=== PATIENT | male | born 1955 | race Caucasian/White ===

== ENCOUNTER 2024-09-13 06:15 | Day surgery (SDC) | payer MEDICARE, OTHER, SELFPAY ==
[2024-09-13 07:21] LABS: Glucose - Point of Care 136 mg/dl (70-99)
== END 2024-09-13 08:32 | disposition home or self-care (01) ==
LOC: GI 06:15
PROVIDERS: ATTENDING PHYSICIAN Specialist
DX: Z12.11 Encounter for screening for malignant neoplasm of colon (principal); D12.2 Benign neoplasm of ascending colon; D12.3 Benign neoplasm of transverse colon; D12.4 Benign neoplasm of descending colon; D12.5 Benign neoplasm of sigmoid colon; Z86.0101 Personal history of adenomatous and serrated colon polyps
CPT/HCPCS: 45385; 45380; 82962; 88305

== ENCOUNTER → 2024-10-07 12:12 | Outpatient (REF) | payer MEDICARE, OTHER, SELFPAY | LOC: HWRAD 12:12 | PROVIDERS: ATTENDING PHYSICIAN Family Medicine | DX: R07.81 Pleurodynia (principal) | CPT/HCPCS: 71101 ==

== ENCOUNTER 2024-12-10 12:01 | Emergency (ER) | payer MEDICARE, OTHER, SELFPAY ==
[2024-12-10 12:02] VITALS: BP 148/80
[2024-12-10 12:19] LABS: Urine Character Clear (Clear)
[2024-12-10 12:20] LABS: Hematocrit 40.9 % (39.0-52.0); Hemoglobin 13.7 g/dL (13.0-18.0); Mean Corp Hgb Conc. 33.5 g/dL (33.0-37.0); Mean Corpuscular Volume 87.6 fL (80.0-94.0); Nucleated Red Blood Cells % 0 % (-); Platelet Count 257 10^3/uL (130-400); Red Cell Dist. Width 14.8 % (11.5-14.5)
--- NOTE | 2024-12-10 12:24 | ED.GENMED ---
History of Present Illness
General
Chief Complaint: Flank Pain
Source: patient
Exam Limitations: none
Time Seen by Provider: 12/10/24 12:15
History of Present Illness
History of Present Illness:
69 year old male presents with sudden onset of right flank pain sharp in nature with nausea and vomiting. Pain feels similar to prior kidney stone he had 30 years ago. He notes hematuria. No prior abdominal surgical history. He does have history
of lung cancer was treated with chemo surgery and radiation. He was also recently diagnosed with prostate cancer at early stages that is currently being watched. No other
Past History
Past History
ED Past Medical History: Cancer (lung (non-small cell)) and IDDM
ED Past Surgical History: Other (lung resection)
Social History
Tobacco: Non-smoker
Alcohol: None
Phy Exam
Physical Exam
Physical Exam:
General: Well-appearing male no acute respiratory
HEENT: Normal cephalic atraumatic
Heart: Regular rate and rhythm
Lungs: Clear no wheeze
Abdomen is soft but tender to the right costovertebral angle.
Extremities: No cyanosis or edema
Skin warm no rash
Course
Orders/Labs/Results
Orders:
Orders
12/10/24 12:11
Complete Blood Count/With Diff Urgent
Comprehensive Metabolic Panel Urgent
Urinalysis Reflex To Culture Urgent
Date Specimen was Collected: 12/10/24
Time Specimen was Collected: 12:09
Urine Microscopic Reflex Cult Urgent
Urine Culture Urgent
MARYCARMEN Source: U
Specimen Description:
Date Specimen was Collected: 12/10/24
Time Specimen was Collected: 12:09
12/10/24 12:20
0.9% Sodium Chloride 1000 ml [Nss] 1,000 ml IV BOLUS
Ketorolac [Toradol] 15 mg IV NOW STA
Ondansetron Injectable [Zofran] 4 mg IV NOW STA
12/10/24 12:21
CT Abd/pel Without Iv Or Oral Urgent
Comment:
Reason For Exam: right flank pain
Abnormal Lab Results
12/10/24
12:11
RBC 4.67 L 10^6/uL
(4.70-6.10)
RDW 14.8 H %
(11.5-14.5)
Absolute Neuts (auto) 7.4 H 10^3/uL
(1.4-6.5)
Lymphocytes % 19.1 L %
(20.5-51.1)
Chloride 108 H mmol/L
(98-107)
Ur Occult Blood Reflex 4+ A
(Negative)
Leukocyte Esterase Rfl 1+ A
(Negative)
Urine RBC >100 A /HPF
(0-2)
Urine Bacteria (Reflex) Moderate A
(Negative)
Urine Albumin (Reflex) 2+ A
(Neg - Trace)
12/10/24 12:11
12/10/24 12:11
Vital Signs
Initial and Last Documented VS:
Initial Vital Signs
Temp Pulse Resp BP Pulse Ox
97.5 F 72 20 148/80 97
12/10/24 12:02 12/10/24 12:02 12/10/24 12:02 12/10/24 12:02 12/10/24 12:02
Last Documented Vital Signs
Temp Pulse Resp BP Pulse Ox
97.5 F 72 20 148/80 97
12/10/24 12:02 12/10/24 12:02 12/10/24 12:02 12/10/24 12:02 12/10/24 12:28
MDM/Problems Addressed
Differential Diagnosis Includes:
Right flank pain likely renal colic from kidney stone to consider UTI versus musculoskeletal pain. No rash to suggest shingles.
Urinalysis shows hematuria. Will check labs. CT pending. Treated with Toradol Zofran and fluids
*Pulse Oximetry
SaO2: 97
Oxygen Mode of Delivery: Room air
Patient hypoxic: no
*Critical Care Note
Total Time (30-74mins, 75-104mins- exclusive of procedures): Not Applicable
Update Note
Update Note:
CT demonstrates 3 mm stone at the distal UVJ. There is hematuria in the urine but no obvious infection. Patient's pain is completely resolved after CT scan and reevaluation. He may have passed it into the bladder or as a result of the Toradol.
No indication for admission. Recommended hydration at home and continued use of ibuprofen if needed. Return precautions given. He has a urologist he can follow-up with through [facility]
ED Attending Note
-
Portions of this chart may have been created with voice recognition software.� Occasional wrong word or��sound alike� substitutions may have occurred due to the inherent limitations of voice recognition software.
Discharge Plan
Departure
Patient Disposition: Home (Routine Discharge)
Date of Disposition: 12/10/24
Time of Disposition: 15:40
Patient with high blood pressure during this ER visit?: No
Discharge Problem:
Kidney stone
Instructions: Kidney Stones (DC)
Prescriptions:
No Action
gabapentin 600 MG tablet
1,200 mg PO BID
folic acid 0.4 MG tablet
0.4 mg PO HS
insulin lispro [Humalog U-100 Insulin] 100 UNIT/ML solution
0 unit INFUSION DAILY
Patient Comments:
03/26/2019 patient uses 84 units in insulin pump daily. 1unit per hour.
escitalopram oxalate 20 MG tablet
20 mg PO HS
Insulin Pump [Patient's Own Insulin Pump:] 1 UNITS Pump.Resvr
0 ea SC ACHS
Patient Comments:
03/26/2019 patient uses 84 units daily in pump. 1 unit per hour.
acetaminophen 325 MG tablet
650 mg PO Q6HPRN PRN (Reason: mild pain/ fever>100.5F) 0RF
enoxaparin 100 MG/ML syringe
100 mg SC Q12H Qty: 1 0RF
Referrals:
Sb Mendez MD [Family Provider, [facility]]
Activity Restrictions/Additional Instructions:
Drink plenty fluids. Continue with Tylenol or ibuprofen for pain. Return here for fever increased pain vomiting or other concerning finding. Follow-up with your urologist otherwise
Interventions
Interventions:
*Risk Screen - Suicide Last Done: 12/10/24 12:02
*General Assessment Last Done: 12/10/24 12:02
*Neglect/Abuse Screening Last Done: 12/10/24 12:15
*ED- Fall Risk Assessment Last Done: 12/10/24 12:15
*ED COVID-19 Vaccine History Last Done: 12/10/24 12:15
*ED Influenza Vaccine History Last Done: 12/10/24 12:15
[id number]-[id number] Assessment Last Done: 12/10/24 12:15
ED-Male Genitourinary Assessment Last Done: 12/10/24 12:15
Discharge Date and Time
Print Language: SINHALA
[2024-12-10] MEDS: NSS 1000 IV (12:26)
[2024-12-10] MEDS: ZOFRAN 4 MG IV (12:26)
[2024-12-10] MEDS: TORADOL 15 MG IV (12:27)
[2024-12-10 12:43] LABS: Urine Red Blood Cell >100 /HPF (0-2); Urine White Cell 0-2 /HPF (0-5)
[2024-12-10 12:51] LABS: ALT (SGPT) 17 U/L (0-50); AST (SGOT) 25 U/L (17-59); Albumin 4.4 g/dl (3.5-5.0); Alkaline Phosphatase 110 U/L (38-126); Blood Urea Nitrogen 17 mg/dl (9-20); Calcium 9.7 mg/dl (8.4-10.2); Carbon Dioxide 30 mmol/L (22-30); Chloride 108 mmol/L (98-107); Glucose 98 mg/dl (70-99); Potassium 4.1 mmol/L (3.5-5.1); Sodium 143 mmol/L (135-145); Total Protein 7.5 g/dl (6.3-8.2); eGFR > 60.00
== END 2024-12-10 16:09 | disposition home or self-care (01) ==
LOC: EMR 12:01
PROVIDERS: EMERGENCY PHYSICIAN Student in an Organized Health Care Education/Training Program; FAMILY PHYSICIAN Family Medicine
DX: N13.2 Hydronephrosis with renal and ureteral calculous obstruction (principal); C61 Malignant neoplasm of prostate; E10.9 Type 1 diabetes mellitus without complications; Z79.4 Long term (current) use of insulin; Z96.41 Presence of insulin pump (external) (internal); Z87.442 Personal history of urinary calculi; Z85.118 Personal history of other malignant neoplasm of bronchus and lung; Z92.21 Personal history of antineoplastic chemotherapy
CPT/HCPCS: 99284; 96374; 96375; 96361; 74176; 80053; 81003; 81015; 85025; 87086